=== PATIENT | female | born 1960 | race Caucasian/White ===

== ENCOUNTER 2020-09-07 08:15 | Outpatient (REF) | payer OTHER, SELFPAY ==
[2020-09-07 08:49] LABS: Hematocrit 39.7 % (37-47); Hemoglobin 13.4 g/dl (12.0-16.0); Mean Corpuscular HGB Conc 33.8 g/dl (31.0-35.0); Mean Corpuscular Hemoglobin 30.2 pg (27.0-33.0); Mean Corpuscular Volume 89.4 fL (80-98); Mean Platelet Volume 8.9 fL (9.4-12.3); Platelet Count 173 X10*3/uL (160-400); Red Blood Count 4.44 X10*6/uL (4.20-5.50); Red Cell Distribution Width 13.1 % (11.0-16.0); White Blood Count 3.8 X10*3/uL (4.8-10.8)
[2020-09-07 09:14] LABS: Estimated Average Glucose 100 mg/dL; Hemoglobin A1c % 5.1 %
[2020-09-07 09:19] LABS: Alanine Aminotransferase 27 U/L (0-31); Albumin Level 4.3 g/dL (3.5-5.0); Alkaline Phosphatase 57 U/L (39-117); Aspartate Amino Transferase 24 U/L (5-31); Bilirubin Direct 0.2 mg/dL (0.0-0.5); Bilirubin Total 0.6 mg/dL (0.0-1.0); Blood Urea Nitrogen 14 mg/dL (9-16); Estimated Glomerular Filt Rate > 60; Glucose Fasting 102 mg/dL (60-99); Lipase 12 U/L (8-78); Total Protein 6.6 g/dL (6.5-8.0)
== END 2020-09-07 08:16 | disposition home or self-care (01) ==
LOC: HO.LAB 08:15
PROVIDERS: PCP Internal Medicine; Visit Provider Internal Medicine Gastroenterology
DX: Z15.01 Genetic susceptibility to malignant neoplasm of breast (principal); Z15.09 Genetic susceptibility to other malignant neoplasm
CPT/HCPCS: 36415; 80076; 82565; 82947; 83036; 83690; 84520; 85027

== ENCOUNTER → 2020-10-05 09:17 | Outpatient (BNVA) | payer OTHER, SELFPAY | PROVIDERS: PCP Internal Medicine; Visit Provider Internal Medicine Gastroenterology | DX: K57.30 Diverticulosis of large intestine without perforation or abscess without bleeding (principal); Z15.01 Genetic susceptibility to malignant neoplasm of breast; Z15.09 Genetic susceptibility to other malignant neoplasm | CPT/HCPCS: 99212 ==

== ENCOUNTER 2020-10-19 15:27 | Outpatient (REF) | payer OTHER, SELFPAY ==
--- NOTE | ~2020-10-19 | MR_ITS ---
EXAMINATION: MR ABDOMEN WITHOUT AND WITH CONTRAST CLINICAL INFORMATION: Genetic susceptibility for malignancy. Screening. COMPARISON: MR abdomen without and with contrast 08/31/2019 TECHNIQUE: MR abdomen was performed without and with use of 7.0 mL intravenous Gadavist gadolinium contrast. Postcontrast images are performed in multiphase dynamic sequences. Imaging was performed in 3 planes. FINDINGS: LUNG BASES: Lung bases are unremarkable. There are bilateral breast implants seen on the large [id number] images. LIVER, GALLBLADDER, AND BILIARY TREE: The liver is normal in size and smooth in contour. Parenchymal areas uniform in signal. No definite hepatic steatosis. Again, there are innumerable cysts scattered throughout the liver. There is no enhancing parenchymal lesion. Largest cyst is central right lobe 1.5 cm, previously 1.3 cm. There is a 1.2 cm cyst subcapsular medial right lobe, previously 0.9 cm. The gallbladder is unremarkable with no evidence of gallbladder wall thickening, or obvious pericholecystic inflammatory changes. PANCREAS: Normal in size and contour and signal. No pancreatic ductal distention. No parenchymal lesion or peripancreatic inflammatory changes. SPLEEN: Normal. ADRENAL GLANDS: Normal. KIDNEYS AND URETERS: The kidneys are normal in size, shape, and enhance symmetrically. No hydronephrosis. No perinephric stranding. There are a few punctate renal cysts again seen under 5 mm. GASTROINTESTINAL TRACT: No bowel obstruction. No ascites or fluid collection. ABDOMINAL WALL: No significant hernia is appreciated. LYMPH NODES: No lymphadenopathy. VASCULAR: Unremarkable. OSSEOUS STRUCTURES: Marrow signal normal. MR/MR abdomen wo/w con IMPRESSION: 1. Innumerable small hepatic cysts without significant change. No enhancing liver parenchymal lesion. 2. Normal pancreas and spleen. A few punctate renal cysts. 3. No adenopathy or ascites.
== END 2020-10-19 15:28 | disposition home or self-care (01) ==
LOC: HO.MRI 15:27
PROVIDERS: PCP Internal Medicine; Visit Provider Internal Medicine Gastroenterology
DX: Z15.09 Genetic susceptibility to other malignant neoplasm (principal); Z15.01 Genetic susceptibility to malignant neoplasm of breast
CPT/HCPCS: 74183; A9585